=== PATIENT | female | born 1970 | race Caucasian/White ===

== ENCOUNTER → 2018-06-10 | Outpatient (CLI) | payer MEDICAID | LOC: CIMAGING 07:28 | PROVIDERS: ATTEND Nurse Practitioner Family | DX: B18.2 Chronic viral hepatitis C (principal) | CPT/HCPCS: 76705-PO ==

== ENCOUNTER → 2018-07-03 | Outpatient (CLI) | payer MEDICAID ==
[~2018-07-03] MED LIST: GADOBUTROL 10 ML VIAL IVP ONE
== END ==
LOC: FIMAGING 07:15
PROVIDERS: ATTEND Nurse Practitioner Family
DX: D18.03 Hemangioma of intra-abdominal structures (principal); Z86.19 Personal history of other infectious and parasitic diseases
CPT/HCPCS: A9585